=== PATIENT | female | born 1990 | race Caucasian/White ===

== ENCOUNTER 2017-09-16 14:39 | Emergency (ER) | payer MEDICAID ==
[~2017-09-16] VITALS: Ht 160 cm; Wt 54.4 kg
[2017-09-16 14:56] VITALS: BP 110/77
[2017-09-16 16:58] VITALS: BP 121/75
== END 2017-09-16 16:56 | disposition home or self-care (01) ==
LOC: MED 14:39
DX: O21.0 Mild hyperemesis gravidarum (principal); Z3A.19 19 weeks gestation of pregnancy
CPT/HCPCS: 81002; 81025; 99283

== ENCOUNTER 2017-09-19 08:05 | Observation (INO) | payer MEDICAID ==
[~2017-09-19] VITALS: Ht 160 cm; Wt 57.2 kg
[2017-09-19] MEDS ORDERED: PNV1TABL PO (08:35)
[2017-09-19 08:45] VITALS: BP 110/71
== END 2017-09-19 12:05 | disposition home or self-care (01) ==
LOC: MLD 08:05
PROVIDERS: ADMIT Obstetrics & Gynecology; ATTEND Obstetrics & Gynecology
DX: Z34.92 Encounter for supervision of normal pregnancy, unspecified, second trimester (principal); Z3A.19 19 weeks gestation of pregnancy
CPT/HCPCS: 76805; G0378; Q0092